=== PATIENT | male | born 1995 | race Caucasian/White ===

== ENCOUNTER 2025-02-20 23:01 | Emergency (ER) | payer BC, SELFPAY ==
[2025-02-20] VITALS (7 sets, daily range): BP systolic 112–127; BP diastolic 78–89; PULSE 69–90; TEMP 36.8; O2SAT 94–99; BMI 32.5
[2025-02-21] VITALS (11 sets, daily range): BP systolic 103–113; BP diastolic 66–77; PULSE 65–79; TEMP 36.8; O2SAT 93–99
--- NOTE | 2025-02-21 00:06 | ED.ARRPALP1 ---
HPI - Arrhythmia/Palpitations General Chief Complaint: Arrhythmia/Palpitations Stated Complaint: ELEVATED HEART RATE Time Seen by Provider: 02/20/25 23:19 Source: patient Mode of arrival: walk-in Limitations: no limitations History of Present Illness HPI narrative: This 29-year-old male non-smoker, nondrinker with no significant medical history presents for evaluation of 3 days of intermittent palpitations. He states the symptoms are worse with trying to sleep. He does work night so his symptoms are worse in the morning. He denies any kunal chest pain or shortness of breath. He denies any dizziness or diaphoresis. He is under a moderate amount of stress as he works nights and his significant other works days and they have a [id number] baby. He admits that he does not get to sleep often or for long periods of time. He denies any abdominal pain or back pain. He has not had any fevers or chills. He has not taken his pulse because he does not know how to take a pulse. Related Data Home Medications ?Medication ?Instructions ?Recorded ?Confirmed No Known Home Medications 02/20/25 02/20/25 Allergies Allergy/AdvReac Type Severity Reaction Status Date / Time No Known Drug Allergies Allergy Verified 02/20/25 23:11 Review of Systems ROS Status of ROS 10 or more systems reviewed and unremarkable except as noted in history and below PFSH PFSH Social History Little interest or pleasure in doing things: not at all Feeling down, depressed, or hopeless: not at all Exam Narrative Exam Narrative: Vital signs and Nursing Notes reviewed: Patient is afebrile with a normal pulse, normal blood pressure, he is not hypoxic with pulse ox of 99% on room air General: Awake, alert, oriented, no acute distress, lying comfortably on the stretcher-patient appears on the verge of tears HEENT: Normocephalic atraumatic, mucous membranes are moist and pink, eyes are clear, normal conjunctiva, vision is grossly intact, posterior pharynx is normal in appearance. Neck: Supple, no meningeal signs, no thyroid enlargement appreciated Chest: Lungs are clear to auscultation with good air entry, there is no wheezing rhonchi or rales appreciated no accessory muscle use, patient is speaking in complete sentences-no chest wall tenderness to palpation CVS: Regular rate and rhythm S1-S2, no murmurs rubs or gallops, pulses are brisk and equal bilaterally ABD: Soft, nondistended, nontender, no rebound guarding or rigidity, bowel sounds are normal, no pulsatile masses appreciated Extremities: Moving all extremities, no lower extremity tenderness or swelling noted, negative Homans' sign, pulses are brisk and equal bilaterally Skin: Normal in appearance without rash,pallor, petechiae or purpura Neuro: No focal deficits Constitutional Vital Signs, click to edit/add: Last Vital Signs Temp 98.2 F 02/20/25 23:07 Pulse 69 02/21/25 00:50 Resp 20 02/21/25 00:50 BP 111/77 02/21/25 00:30 Pulse Ox 97 02/21/25 00:50 O2 Del Method Room Air 02/20/25 23:07 Course Vital Signs Vital signs: Vital Signs Temperature 98.2 F 02/20/25 23:07 Pulse Rate 90 02/20/25 23:07 Respiratory Rate 16 02/20/25 23:07 Blood Pressure 127/89 02/20/25 23:07 Pulse Oximetry 99 02/20/25 23:07 Oxygen Delivery Method Room Air 02/20/25 23:07 Temperature 98.2 F 02/20/25 23:07 Pulse Rate 69 02/21/25 00:50 Respiratory Rate 20 02/21/25 00:50 Blood Pressure 111/77 02/21/25 00:30 Pulse Oximetry 97 02/21/25 00:50 Oxygen Delivery Method Room Air 02/20/25 23:07 MDM - Arrhythmia/Palpitations MDM Narrative Medical decision making narrative: This 29-year-old male presents for evaluation of the sensation that his heart is beating fast particularly when he is trying to fall asleep. He works nights so he states he goes home in the morning and is having trouble sleeping. States he has a hard time slowing his mind down. He is not having any chest pain. He admits that he has a hard time sleeping because he has a [id number] baby at home. Most recently the babies grandmother has been coming over and helping out so he has been getting 6 or 8 hours of sleep. He does not drink or smoke. He is moderately overweight. He does not have any significant medical history. He appears extremely anxious during my physical exam and is on the verge of tears. I did explain to him how to take his pulse. EKG done upon arrival to normal sinus rhythm. 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 A cardiac workup was ordered. He has a normal white count and hemoglobin. Electrolytes liver function tests troponin and D-dimer are all normal. He was not medicated in the emergency department as he does not require anything for any arrhythmia or tachycardia but was discharged home with a dose of Ativan to take to help him sleep tonight and he was given a prescription for hydroxyzine to use as needed. He will be referred to outpatient family medicine as he does not have a family physician. He was encouraged return the emergency department for chest pain dizziness shortness of breath or any concerns. He did discuss anxiety as a likely etiology of some of his symptoms. Lab Data Attestation: I reviewed the patient's lab results. Labs: Lab Results 02/20/25 Range/Units 23:45 WBC 9.5 (4.0-11.0) 10^3/uL RBC 5.34 (4.70-6.10) 10^6/uL Hgb 16.8 (14.0-18.0) g/dL Hct 46.2 (42.0-54.0) % MCV 86.5 (80.0-94.0) fL MCH 31.5 (25.9-34.0) pg MCHC 36.4 H (29.9-35.2) g/dL RDW 12.2 (11.0-15.0) % Plt Count 220 (150-450) 10^3/uL MPV 10.8 (9.5-13.5) fL Neut % (Auto) 56.9 (43.0-75.0) % Lymph % (Auto) 33.6 (20.5-60.0) % [place] % (Auto) 7.0 (1.7-12.0) % Eos % (Auto) 1.6 (0.9-7.0) % Baso % (Auto) 0.6 (0.2-2.0) % Neut # (Auto) 5.4 (1.4-6.5) 10^3/uL Lymph # (Auto) 3.2 (1.2-3.8) 10^3/uL [place] # (Auto) 0.7 (0.3-0.8) 10^3/uL Eos # (Auto) 0.2 (0.0-0.7) 10^3/uL Baso # (Auto) 0.1 (0.0-0.1) 10^3/uL Abs Immat Gran (auto) 0.03 (0.00-0.03) 10^3/uL Imm/Tot Granulo (auto) 0.3 (0.0-0.5) % D-Dimer <0.19 (<=0.59) mg/L FEU Sodium 140 (136-145) mmol/L Potassium 3.6 (3.5-5.1) mmol/L Chloride 105 (98-107) mmol/L Carbon Dioxide 27.8 (21.0-32.0) mmol/L Anion Gap 10.8 BUN 11.0 (7.0-18.0) mg/dL Creatinine 1.04 (0.70-1.30) mg/dL Est GFR ( Amer) >60 (>=60 mL/min/1.73m^2) Est GFR (Non-Af Amer) >60 (>=60 mL/min/1.73m^2) BUN/Creatinine Ratio 10.6 Glucose 88 (74-106) mg/dL Calcium 9.1 (8.5-10.1) mg/dL Total Bilirubin 0.5 (0.2-1.0) mg/dL AST 31 (15-37) U/L ALT 73 H (16-63) U/L Alkaline Phosphatase 77 (46-116) U/L Troponin I High Sens 5.7 (4.0-76.1) pg/mL Total Protein 7.5 (6.4-8.2) g/dL Albumin 4.1 (3.4-5.0) g/dL Globulin 3.4 g/dL Albumin/Globulin Ratio 1.2 TSH 1.417 (0.358-3.740) uIU/mL ECG Data Attestation: I personally reviewed and interpreted this ECG as follows: (Sinus rhythm at 79 bpm, normal axis, normal intervals, no acute ST segment elevation or T wave inversion) Discharge Plan Discharge Chief Complaint: Arrhythmia/Palpitations Clinical Impression: Palpitations, Anxiety Patient Disposition: Home, Self-Care Time of Disposition Decision: 01:02 Condition: Good Prescriptions / Home Meds: No Action No Known Home Medications Print Language: Italian Instructions: Heart Palpitations (ED), Anxiety (ED) Referrals: Physician,Non-Staff, MD [Primary Care Provider] - 1 week
[2025-02-21 00:14] LABS: Basophils Absolute Auto 0.1 10^3/uL (0.0-0.1); Basophils Percent Auto 0.6 % (0.2-2.0); Eosinophils Absolute Auto 0.2 10^3/uL (0.0-0.7); Eosinophils Percent Auto 1.6 % (0.9-7.0); Hematocrit 46.2 % (42.0-54.0); Hemoglobin 16.8 g/dL (14.0-18.0); Immature Granulocytes Abs Auto 0.03 10^3/uL (0.00-0.03); Immature Granulocytes Pct Auto 0.3 % (0.0-0.5); Lymphocytes Absolute Auto 3.2 10^3/uL (1.2-3.8); Lymphocytes Percent Auto 33.6 % (20.5-60.0); Mean Corpuscular HGB Conc 36.4 g/dL (29.9-35.2); Mean Corpuscular Hemoglobin 31.5 pg (25.9-34.0); Mean Corpuscular Volume 86.5 fL (80.0-94.0); Mean Platelet Volume 10.8 fL (9.5-13.5); Monocytes Absolute Auto 0.7 10^3/uL (0.3-0.8); Neutrophils Absolute Auto 5.4 10^3/uL (1.4-6.5); Neutrophils Percent Auto 56.9 % (43.0-75.0); Platelet Count 220 10^3/uL (150-450); Red Blood Count 5.34 10^6/uL (4.70-6.10); Red Cell Distribution Width 12.2 % (11.0-15.0); White Blood Count 9.5 10^3/uL (4.0-11.0)
[2025-02-21 00:24] LABS: D Dimer <0.19 mg/L FEU (<=0.59)
[2025-02-21 00:26] LABS: Alanine Aminotransferase 73 U/L (16-63); Albumin Globulin Ratio 1.2; Albumin Level 4.1 g/dL (3.4-5.0); Alkaline Phosphatase 77 U/L (46-116); Anion Gap 10.8; Aspartate Amino Transferase 31 U/L (15-37); BUN Creatinine Ratio 10.6; Bilirubin Total 0.5 mg/dL (0.2-1.0); Calcium 9.1 mg/dL (8.5-10.1); Carbon Dioxide 27.8 mmol/L (21.0-32.0); Chloride 105 mmol/L (98-107); Estimated GFR (African America >60 (>=60 mL/min/1.73m^2); Estimated GFR (Non-African Ame >60 (>=60 mL/min/1.73m^2); Globulin 3.4 g/dL; Glucose 88 mg/dL (74-106); Potassium 3.6 mmol/L (3.5-5.1); Sodium 140 mmol/L (136-145); Total Protein 7.5 g/dL (6.4-8.2)
--- NOTE | 2025-02-21 00:30 | ECG_ITS ---
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 Measurements Intervals [place] Rate: 79 P: 48 RI: 148 QRS: -4 QRSD: 90 T: 40 QT: 358 QTc: 393 Interpretive Statements 1100 Sinus rhythm 9110 normal ECG No previous ECG available for comparison Electronically Signed On 02-21-2025 17:52:31 EDT by ESTRELLA BISHOP M.D.
[2025-02-21 00:35] LABS: Thyroid Stimulating Hormone 1.417 uIU/mL (0.358-3.740); Troponin I High Sensitivity 5.7 pg/mL (4.0-76.1)
[2025-02-21] MEDS: LORAZEPAM 0.5 MG TABLET PO (01:28)
--- NOTE | 2025-02-21 01:36 | PC.NURSE ---
i gave this patient verbal and written discharge orders along 1 Rx, 1 take home medication, 1 work note, and 1 list of new providers, this patient voices yes to understanding these. this patient was instructed not to operate automobile, machinery and go to work when take this take home medication. this patient voices yes to understanding these instruction for this take home medication. at time of discharge this patient voices no concerns and shows no signs of distress
== END 2025-02-21 01:35 | disposition home or self-care (01) ==
PROVIDERS: Emergency Provider Emergency Medicine
DX: R00.2 Palpitations (principal); F41.8 Other specified anxiety disorders
CPT/HCPCS: 36415; 80053; 84443; 84484; 85025; 85378; 93005; 99285